=== PATIENT | male | born 1945 | race Caucasian/White ===

== ENCOUNTER 2016-09-25 07:56 | Day surgery (SDC) | payer OTHER ==
[2016-09-25] MEDS ORDERED: LIDOCAINE 1% 2 ML INJ ID PRN (08:13)
[2016-09-25] MEDS ORDERED: LR 1,000 ML IV ONE (08:13)
[2016-09-25 08:25] VITALS: PULSE 77
[2016-09-25 09:08] LABS: ANION GAP 13 mEq/L (8-16); CALCIUM 8.9 mg/dL (8.5-10.4); CARBON DIOXIDE 26 mEq/l (22-31); CHLORIDE 107 mEq/L (97-110); CREATININE 0.8 mg/dL (0.7-1.3); GLOMERULAR FILTRATION RATE > 60; GLUCOSE 144 mg/dL (70-100); POTASSIUM 3.2 mEq/L (3.5-5.2); SODIUM 146 mEq/L (134-144)
[2016-09-25 09:10] LABS: INR 1.25 (0.83-1.16); PROTIME(PATIENT) 15.7 SEC (12.0-15.0)
[2016-09-25] MEDS ORDERED: ONDANSETRON 4 MG/2 ML VIAL IVP PRN (10:09)
[2016-09-25] MEDS ORDERED: ACETAMINOPHEN 500 MG TAB PO PRN (10:09)
[2016-09-25] MEDS ORDERED: NALOXONE HCL 0.4 MG/ML INJ IVP PRN (10:09)
[2016-09-25] MEDS ORDERED: fentaNYL 100 MCG/2 ML INJ IVP PRN (10:09)
--- NOTE | 2016-09-25 10:10 | PDANEPAE ---
ANE History of Present Illness EUS ANE Past Medical History - Cardiovascular History Hx Hypertension: Yes Hx Arrhythmias: No Hx Chest Pain: No Hx Coronary Artery / Peripheral Vascular Disease: No Hx CHF / Valvular Disease: No Hx Palpitations: No Cardiovascular History Comment: BP well controlled. 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 - Pulmonary History Hx COPD: No Hx Asthma/Reactive Airway Disease: No Hx Recent Upper Respiratory Infection: No Hx Oxygen in Use at Home: No Hx Sleep Apnea: No Sleep Apnea Screening Result - Last Documented: Negative - Neurologic History Hx Cerebrovascular Accident: No Hx Seizures: No Hx Dementia: No - Endocrine History Hx Diabetes: Yes Endocrine History Comment: IDDM X 20 YRS - Renal History Hx Renal Disorders: No - Liver History Hx Hepatic Disorders: No - GI History Hx Gastrointestinal Disorders: Yes Gastrointestinal History Comment: Pancreatic cyst. stent placed in bile duct. - Chronic Pain History Chronic Pain: No - Surgical History Prior Surgeries: Lum fusion L2-L5 2014. bilat total knees-5 yrs apart. R shoulder rotator cuff. Adenoidectomy,uvula soft palate removal 2006 ANE Review of Systems Review of systems is: negative - Exercise capacity METS (RN): 4 METS ANE Patient History - Allergies Allergies/Adverse Reactions: atenolol [From Tenormin] Allergy (Verified 09/24/16 18:13) Loss of consciousness - Home Medications Home Medications: Carvedilol 09/24/16 [Last Taken 09/25/16 05:30] Clonidine 09/24/16 [Last Taken 09/24/16 06:00] Januvia 100 MG (*) 09/24/16 [Last Taken 09/24/16 06:00] Lantus 100 UNITS/ML (*) 09/24/16 [Last Taken 09/25/16 05:30 20 units] Lisinopril 09/24/16 [Last Taken 09/24/16 06:00] Metformin 1000 mg 09/24/16 [Last Taken 09/24/16 20:00] Novolog Flexpen 09/24/16 [Last Taken 09/18/16] Tamsulosin HCl 09/24/16 [Last Taken 09/24/16 06:00] Vitamin D3 09/24/16 [Last Taken 09/25/16 06:00] Warfarin Sodium 09/24/16 [Last Taken 09/21/16 09:00] - NPO status NPO Since - Liquids (Date): 09/24/16 NPO Since - Liquids (Time): 18:00 NPO Since - Solids (Date): 09/24/16 NPO Since - Solids (Time): 17:30 - Smoking Hx Smoking Status: Never smoked ANE Labs/Vital Signs - Labs Result Diagrams: 09/25/16 08:40 - Vital Signs Blood Pressure: 162/99 Heart Rate: 77 Respiratory Rate: 16 O2 Sat (%): 97 Height: 177.8 cm Weight: 83.915 kg ANE Physical Exam - Airway Neck exam: FROM Mallampati Score: Class 2 Mouth exam: normal dental/mouth exam - Pulmonary Pulmonary: clear to auscultation - Cardiovascular Cardiovascular: regular rate and rhythym - ASA Status ASA Status: III ANE Anesthesia Plan Anesthesia Plan: general endotracheal anesthesia
[2016-09-25] MEDS ORDERED: PROPOFOL/EMULSION 500 MG/50 ML BOTTLE IV ONE (10:11)
[2016-09-25] MEDS ORDERED: LIDOCAINE 2% 5 ML SDV ONE (10:12)
--- NOTE | 2016-09-25 10:17 | PDGENHP ---
History & Physical Chief Complaint: Jaundice, bile duct stricture Relevant Physical Exam: GEN: NAD. Cardiac: RRR. Lungs: CTA B. Abd: Soft, nt, nd
[2016-09-25] MEDS ORDERED: PROPOFOL 200 MG/20 ML VIAL ONE ×2 (10:50→11:07)
[2016-09-25] MEDS ORDERED: levOFLOXACIN 500 MG/DEXTROSE/100 ML BAG IV ONE (10:58)
--- NOTE | 2016-09-25 11:29 | POSTOPPROG ---
Post Op Note Date of Operation: 09/25/16 Surgeon: Nikolas Johnson Pre-op Diagnosis: jaundice, pancreatic cysts Post-op Diagnosis: same Indication: jaundice, pancreatic cysts Procedure: EUS w/ FNA Findings: Multiple pancreatic cysts, chronic pancreatitis s/p FNA Inf/Abcess present in the surg proc area at time of surgery?: No
--- NOTE | 2016-09-25 11:35 | POSTANESTH ---
Post Anesthetic Evaluation Cardiovascular Status: Normal, Stable Respiratory Status: Normal, Stable Level of Consciousness/Mental Status: Can Participate in Eval, Mildly Sleepy, Arousable Pain Control: Adequate, Prn Tx Ordered Nausea/Vomiting Control: Adequate, Prn Tx Ordered Complications Possibly Related to Anesthesia: None Noted
[2016-09-25 12:31] VITALS: TEMP 97.5
[2016-09-25 12:44] VITALS: BP 160/96; RESP 15; O2SAT 93
--- NOTE | 2016-09-25 15:12 | GPN ---
[f rep st] PROCEDURE NOTE DATE OF PROCEDURE: 09/25/2016 PREPROCEDURE DIAGNOSIS: Jaundice with history of multiple pancreatic cysts. POSTPROCEDURE DIAGNOSIS: Jaundice with history of multiple pancreatic cysts. PROCEDURE: 1. Esophagogastroduodenoscopy with biopsies. 2. Endoscopic ultrasound including the esophagus, stomach, and duodenum, the second portion with fi ne-needle aspiration. MEDICATION: 1. Monitored anesthesia care. 2. Levofloxacin 500 mg IV given during the procedure. INDICATIONS: The patient is a 71-year-old gentleman with history of multiple IPMNs within the pancr eas, who initially presented with jaundice and the appearance of a tight distal biliary stricture. He initially presented in June for this symptom. He underwent ERCP and a tight malignant-appearing s tricture was seen in the distal bile duct with a shelf, a 10 x [address] covered [address] stent was place d across the stricture. The brushings were negative. His jaundice has completely improved. He is here for endoscopic ultrasound for further evaluation of the distal bile duct stricture. There was no obvious mass on imaging. DESCRIPTION OF PROCEDURE: The end-viewing endoscope was inserted into the esophagus, into stomach a nd second portion of the duodenum. The esophagus appears normal. The GE junction is normal. There was no evidence of Main esophagus. The stomach shows diffuse moderate gastritis and biopsies we re taken using cold biopsy forceps to evaluate for Helicobacter pylori. The duodenum and second por tion was normal. Next, the curvilinear echoendoscope was inserted into the esophagus, into the stomach and the second portion of the duodenum. There were multiple pancreatic cysts of varying sizes noted throughout th e pancreatic head, body and tail. Within the pancreatic head, there is a hypoechoic enlarged area a nd the fully covered wall stent is seen within the bile duct. There is a masslike area in the pancr eatic head which may be related secondarily to chronic pancreatitis, measuring 30.5 mm x 22.7 mm. F our biopsies were taken using the 25-gauge FNA needle into the tissues around the presumed bile duct stricture. Color Doppler was used, and Pathology was present for immediate interpretati on. IMPRESSION: 1. Duodenal inflammation with an indwelling, fully covered wall stent in the bile duct. 2. Moderate gastritis. 3. Masslike enlargement of the pancreatic head which may be secondary to chronic pancreatitis but g iven his history, it certainly is concerning for underlying malignancy. Four biopsies were taken us ing the 25-gauge FNA needle from that area. 4. 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 RECOMMENDATIONS: 1. Advance diet as tolerated. 2. Discharge home with escort. 3. Follow up the final biopsy results. Results available within 10 days. 4. Follow up in my clinic in 2 weeks for further evaluation and review. Thank you for allowing me to participate in the care of this patient. Please do not hesitate to mary morris with questions. /[id number]/MODL
== END 2016-09-25 12:54 | disposition home or self-care (01) ==
LOC: FSGY 07:56
PROVIDERS: ATTEND Internal Medicine Gastroenterology
PROC: 0DB68ZX Excision of Stomach, Via Natural or Artificial Opening Endoscopic, Diagnostic (ICD-10-PCS; principal; 2016-09-25 09:30)
PROC: 0F9G4ZX Drainage of Pancreas, Percutaneous Endoscopic Approach, Diagnostic (ICD-10-PCS; principal; 2016-09-25 09:30)
DX: R17 Unspecified jaundice (principal); K86.2 Cyst of pancreas; D37.8 Neoplasm of uncertain behavior of other specified digestive organs; K29.70 Gastritis, unspecified, without bleeding; K83.1 Obstruction of bile duct; K86.1 Other chronic pancreatitis; E11.9 Type 2 diabetes mellitus without complications; I10 Essential (primary) hypertension; Z79.01 Long term (current) use of anticoagulants; Z96.49 Presence of other endocrine implants; Z96.653 Presence of artificial knee joint, bilateral; Z86.718 Personal history of other venous thrombosis and embolism; Z98.1 Arthrodesis status
CPT/HCPCS: J1956; J2704